=== PATIENT | female | born 1965 | race Caucasian/White ===

== ENCOUNTER 2020-09-28 06:50 | Inpatient (IN) | payer BC ==
--- NOTE | 2020-09-28 07:25 | ED ---
General Adult HPI - General Chief complaint: Weakness Stated complaint: Weakness Time Seen by Provider: 09/28/20 07:09 Source: patient, family, RN notes reviewed Mode of arrival: wheelchair Limitations: no limitations - History of Present Illness Initial comments: Patient is a pleasant 55-year-old female presenting to the emergency Department with complaints of feeling off balance and slurred speech and left-sided weakness. Last known well was before 9 PM last night. Patient woke up around 1 AM and noticed symptoms. Symptoms continue. Patient states she does feel off balance. Patient states left-sided weakness is mild however is present. Pat ient states she is finding words fine just a mild slurred at points. - Related Data Home Medications Medication Instructions Recorded Confirmed No Known Home Medications 09/28/20 09/28/20 Allergies Allergy/AdvReac Type Severity Reaction Status Date / Time No Known Allergies Allergy Verified 09/28/20 08:37 Review of Systems ROS Statement: Those systems with pertinent positive or pertinent negative responses have been documented in the HPI. ROS Other: All systems not noted in ROS Statement are negative. Constitutional: Denies: fever Eyes: Denies: eye pain, vision change ENT: Denies: ear pain Respiratory: Denies: cough Cardiovascular: Denies: chest pain Endocrine: Denies: fatigue Gastrointestinal: Denies: abdominal pain Genitourinary: Denies: dysuria Musculoskeletal: Denies: back pain Skin: Denies: rash Neurological: Reports: weakness, abnormal gait. Denies: headache, paresthesias Past Medical History Past Medical History: No Reported History History of Any Multi-Drug Resistant Organisms: None Reported Past Surgical History: No Surgical Hx Reported Past Psychological History: No Psychological Hx Reported Smoking Status: Never smoker Past Alcohol Use History: None Reported Past Drug Use History: None Reported General Exam Limitations: no limitations General appearance: alert, in no apparent distress Head exam: Present: atraumatic Eye exam: Present: normal appearance, PERRL, EOMI. Absent: nystagmus ENT exam: Present: normal oropharynx Neck exam: Present: normal inspection Respiratory exam: Present: normal lung sounds bilaterally Cardiovascular Exam: Present: regular rate, normal rhythm, normal heart sounds GI/Abdominal exam: Present: soft. Absent: tenderness Extremities exam: Present: normal inspection Neurological exam: Present: alert, oriented X3, CN II-XII intact (Except for a questionable minimal drooping left face). Absent: motor sensory deficit Expanded Neurological exam: Present: protecting the airway, other (Some mild slurred speech is noticed) Cranial nerves: EOM's Intact: Normal Sensory exam: Upper Extremity Light Touch: Normal, Lower Extremity Light Touch: Normal Motor strength exam: RUE: 5, LUE: 4, RLE: 5, LLE: 4 Eye Response: (4) open spontaneously Motor Response: (6) obeys commands Verbal Response: (5) oriented Psychiatric exam: Present: normal affect, normal mood Skin exam: Present: normal color Course Vital Signs 09/28/20 09/28/20 06:52 07:18 Temperature 97.9 F Pulse Rate 71 64 Respiratory 20 20 Rate Blood Pressure 154/77 152/83 O2 Sat by Pulse 100 99 Oximetry - Reevaluation(s) Reevaluation #1: 09/28/20 07:35 Patient is not a TPA candidate secondary to onset greater than 4.5 hours. EKG Findings - EKG Comments: EKG Findings:: Normal sinus rhythm with a rate of 69. MD 144. QRS 98. QT 440. QTc 471. Normal axis. Normal QRS. No acute ST change. Medical Decision Making - Medical Decision Making Patient reevaluated and unchanged. Patient and family updated on results and pl an. [facility] has been paged for admission for hospital call. - Lab Data Result diagrams: 09/28/20 07:40 09/28/20 07:40 Lab Results 09/28/20 09/28/20 09/28/20 Range/Units 07:40 07:40 07:40 WBC 7.3 (3.8-10.6) k/uL RBC 4.36 (3.80-5.40) m/uL Hgb 14.0 (11.4-16.0) gm/dL Hct 41.6 (34.0-46.0) % MCV 95.3 (80.0-100.0) fL MCH 32.1 (25.0-35.0) pg MCHC 33.7 (31.0-37.0) g/dL RDW 12.9 (11.5-15.5) % Plt Count 205 (150-450) k/uL MPV 8.4 Neutrophils % 77 % Lymphocytes % 14 % Monocytes % 6 % Eosinophils % 1 % Basophils % 0 % Neutrophils # 5.7 (1.3-7.7) k/uL Lymphocytes # 1.1 (1.0-4.8) k/uL Monocytes # 0.5 (0-1.0) k/uL Eosinophils # 0.1 (0-0.7) k/uL Basophils # 0.0 (0-0.2) k/uL PT 11.1 (9.0-12.0) sec INR 1.0 (<1.2) APTT 22.1 (22.0-30.0) sec Sodium 140 (137-145) mmol/L Potassium 5.9 H (3.5-5.1) mmol/L Chloride 109 H (98-107) mmol/L Carbon Dioxide 22 (22-30) mmol/L Anion Gap 9 mmol/L BUN 20 H (7-17) mg/dL Creatinine 0.69 (0.52-1.04) mg/dL Est GFR (CKD-EPI)AfAm >90 (>60 ml/min/1.73 sqM) Est GFR (CKD-EPI)NonAf >90 (>60 ml/min/1.73 sqM) Glucose 120 H (74-99) mg/dL POC Glucose (mg/dL) (75-99) mg/dL POC Glu Container Finishing Inspector ID Calcium 9.4 (8.4-10.2) mg/dL Total Bilirubin 0.9 (0.2-1.3) mg/dL AST 49 H (14-36) U/L ALT 32 (4-34) U/L Alkaline Phosphatase 76 (38-126) U/L Troponin I (0.000-0.034) ng/mL Total Protein 7.6 (6.3-8.2) g/dL Albumin 4.3 (3.5-5.0) g/dL 09/28/20 09/28/20 Range/Units 07:40 07:42 WBC (3.8-10.6) k/uL RBC (3.80-5.40) m/uL Hgb (11.4-16.0) gm/dL Hct (34.0-46.0) % MCV (80.0-100.0) fL MCH (25.0-35.0) pg MCHC (31.0-37.0) g/dL RDW (11.5-15.5) % Plt Count (150-450) k/uL MPV Neutrophils % % Lymphocytes % % Monocytes % % Eosinophils % % Basophils % % Neutrophils # (1.3-7.7) k/uL Lymphocytes # (1.0-4.8) k/uL Monocytes # (0-1.0) k/uL Eosinophils # (0-0.7) k/uL Basophils # (0-0.2) k/uL PT (9.0-12.0) sec INR (<1.2) APTT (22.0-30.0) sec Sodium (137-145) mmol/L Potassium (3.5-5.1) mmol/L Chloride (98-107) mmol/L Carbon Dioxide (22-30) mmol/L Anion Gap mmol/L BUN (7-17) mg/dL Creatinine (0.52-1.04) mg/dL Est GFR (CKD-EPI)AfAm (>60 ml/min/1.73 sqM) Est GFR (CKD-EPI)NonAf (>60 ml/min/1.73 sqM) Glucose (74-99) mg/dL POC Glucose (mg/dL) 123 H (75-99) mg/dL POC Glu Container Finishing Inspector ID Asael Claros Calcium (8.4-10.2) mg/dL Total Bilirubin (0.2-1.3) mg/dL AST (14-36) U/L ALT (4-34) U/L Alkaline Phosphatase (38-126) U/L Troponin I <0.012 (0.000-0.034) ng/mL Total Protein (6.3-8.2) g/dL Albumin (3.5-5.0) g/dL - Radiology Data Radiology results: report reviewed (Computed tomography scan of the brain reveals no acute process), image reviewed (Chest x-ray shows no acute process) Disposition Clinical Impression: CVA (cerebral vascular accident) Disposition: ADMITTED IP TO THIS HOSP Is patient prescribed a controlled substance at d/c from ED?: No Referrals: Kaylan Stevens DO [Primary Care Provider] - 1-2 days Decision Time: 08:39
[2020-09-28 07:43] LABS: Glucose,Whole Blood 123 mg/dL (75-99)
[2020-09-28 07:54] LABS: Basophils % (A) 0 %; Eosinophils # (A) 0.1 k/uL (0-0.7); Eosinophils % (A) 1 %; HCT 41.6 % (34.0-46.0); Lymphocytes # (A) 1.1 k/uL (1.0-4.8); Lymphocytes % (A) 14 %; MCH 32.1 pg (25.0-35.0); MCHC 33.7 g/dL (31.0-37.0); MCV 95.3 fL (80.0-100.0); Mean Platelet Volume 8.4; Monocytes # (A) 0.5 k/uL (0-1.0); Monocytes % (A) 6 %; Neutrophils # (A) 5.7 k/uL (1.3-7.7); Neutrophils % (A) 77 %; Platelet Count 205 k/uL (150-450); RBC 4.36 m/uL (3.80-5.40); RDW 12.9 % (11.5-15.5); WBC 7.3 k/uL (3.8-10.6)
--- NOTE | 2020-09-28 08:04 | CT ---
EXAMINATION TYPE: CT brain wo con for TPA DATE OF EXAM: 09/28/2020 COMPARISON: None HISTORY: Neuro deficits, left sided weakness CT DLP: 1079.8 mGycm Automated exposure control for dose reduction was used. FINDINGS: There is no acute intracranial hemorrhage, mass effect, or midline shift identified. The ventricles and sulci are within normal limits in size. The globes are intact and the visualized sinuses are jorge ar. Low-lying cerebellar tonsils without evidence of discrete urinary malformation. IMPRESSION: No acute intracranial hemorrhage, mass effect, or midline shift is seen.
[2020-09-28 08:08] LABS: Partial Thromboplastin Time 22.1 sec (22.0-30.0); Prothrombin Time 11.1 sec (9.0-12.0)
--- NOTE | 2020-09-28 08:16 | XR ---
EXAMINATION TYPE: XR chest 2V DATE OF EXAM: 09/28/2020 COMPARISON: NONE TECHNIQUE: PA and lateral views submitted. HISTORY: Altered mental status FINDINGS: The lungs are clear and there is no pneumothorax, pleural effusion, or focal pneumonia. Heart size normal. No overt failure. Arthropathy of the shoulders. IMPRESSION: 1. No acute process.
[2020-09-28 08:17] LABS: ALT 32 U/L (4-34); African American GFR (CKD) >90 (>60 ml/min/1.73 sqM); Albumin 4.3 g/dL (3.5-5.0); Anion Gap 9 mmol/L; Blood Urea Nitrogen 20 mg/dL (7-17); Calcium 9.4 mg/dL (8.4-10.2); Carbon Dioxide 22 mmol/L (22-30); Chloride 109 mmol/L (98-107); Glucose 120 mg/dL (74-99); Non-African American GFR(CKD) >90 (>60 ml/min/1.73 sqM); Sodium 140 mmol/L (137-145); Total Bilirubin 0.9 mg/dL (0.2-1.3); Total Protein 7.6 g/dL (6.3-8.2)
[2020-09-28 08:21] LABS: AST 49 U/L (14-36); Alkaline Phosphatase 76 U/L (38-126); Potassium 5.9 mmol/L (3.5-5.1)
--- NOTE | 2020-09-28 08:29 | CT ---
EXAMINATION TYPE: CT angio head neck DATE OF EXAM: 09/28/2020 COMPARISON: None HISTORY: Left sided weakness, neuro deficitis CONTRAST: Performed with IV Contrast, patient injected with 65 mL of Isovue 370. Combination Contrast CTA cervical carotids and [place] of [place]ai CTA cervical carotids with 3-D recons truction Contrast CTA of the cervical carotids was performed 3-D reconstruction imaging obtained at a separate workstation. Right carotid system: Mild plaque is seen of the right common carotid artery. There is mild plaque a lso noted at the carotid bulb and proximal ICA. No significant diameter reduction. ECA is patent. Right vertebral artery appears unremarkable. Left carotid system: Mild plaque is seen of the left common carotid artery. There is mild plaque als o noted at the carotid bulb and proximal ICA. No significant diameter reduction. ECA is patent. Lef t vertebral artery appears unremarkable. IMPRESSION: 1. No significant diameter reduction to account for the patient's symptoms. CTA [place] with 3-D reconstruction Contrast CTA of the [place] of [place] was performed 3-D reconstruction imaging obtained at a separate workstation. Vertebrobasilar system as well as intracranial portions of the internal carotid arteries and their [place] tributaries are patent. I do not see evidence for sizable aneurysm or vascular malformation. Pl ease note MRI provides greater sensitivity and specificity. Visualized brain appears grossly unremar kable. IMPRESSION: 1. No significant abnormality.
[2020-09-28] MEDS ORDERED: ASPIRIN 325 MG TAB PO STA (08:39)
[2020-09-28] MEDS: SODIUM CHLORIDE 0.9% 1,000 ML IV SCH ×2 (08:54→19:57)
[2020-09-28] MEDS ORDERED: SODIUM POLYSTYRENE SULFONATE 15 GM/60 ML BOTTLE PO STA (09:38)
[2020-09-28] MEDS ORDERED: ATORVASTATIN 40 MG TAB PO SCH ×2 (09:45→21:00)
--- NOTE | 2020-09-28 09:45 | P.HPIM ---
History of Present Illness H&P Date: 09/28/20 Chief Complaint: Left-sided weakness This is a 55-year-old female with no significant past medical history that presented to the emergency room with left-sided weakness. Patient said that she was in her normal state of health last night and she went to bed around 9 PM and woke up at 1 to the dog out. At that time she noticed that her left side is weak mostly her left arm and left leg. She described herself as if she was drunk. She denies any numbness or tingling anywhere. No headache or back pain. Patient said that she managed to go back to bed and slept and got up this morning to get ready to go to work but noticed that her symptoms are still there so she decided to come to the emergency room for further evaluation. Patient was outside of the window for TPA. Computed tomography scan of the head CT angiography of the head and neck with no acute findings. Patient was seen and evaluated by me in the ER. She told me that her symptoms improved but still h ave some residual weakness mostly in the left lower extremity. She was able to get up and go to the bathroom by herself with minimal difficulty. She'll be admitted to the hospital for further management. Review of Systems Review of system: 14 points review of systems were obtained and were negative except to what were mentioned in the HPI. Past Medical History Past Medical History: No Reported History History of Any Multi-Drug Resistant Organisms: None Reported Past Surgical History: No Surgical Hx Reported Past Psychological History: No Psychological Hx Reported Smoking Status: Never smoker Past Alcohol Use History: None Reported Past Drug Use History: None Reported Medications and Allergies Home Medications Medication Instructions Recorded Confirmed Type No Known Home Medications 09/28/20 09/28/20 History Allergies Allergy/AdvReac Type Severity Reaction Status Date / Time No Known Allergies Allergy Verified 09/28/20 08:37 Physical Exam Vitals: Vital Signs Temp Pulse Resp BP Pulse Ox 09/28/20 08:55 68 20 133/68 99 09/28/20 07:18 64 20 152/83 99 09/28/20 06:52 97.9 F 71 20 154/77 100 Intake and Output 09/27/20 09/28/20 09/28/20 22:59 06:59 14:59 Other: Weight 92.986 kg General: The patient is awake and alert, in no distress Eye: there is normal conjunctiva bilaterally. Neck: The neck is supple, there is no JVD. Cardiovascular: Normal S1-S2, no S3-S4, no murmurs. Respiratory: Lungs clear to auscultation bilaterally Gastrointestinal: Abdomen is soft, nontender Musculoskeletal: There is no pedal edema. Neurological:. Speech is normal. Cranial nerves intact. Muscle strength 5/5 in upper extremities and 5 /5 in right lower extremity but 3--4 out of 5 in left lower extremity Skin: Skin is warm and dry Results CBC & Chem 7: 09/28/20 07:40 09/28/20 07:40 Labs: Abnormal Lab Results - Last 24 Hours (Table) 09/28/20 09/28/20 Range/Units 07:40 07:42 Potassium 5.9 H (3.5-5.1) mmol/L Chloride 109 H (98-107) mmol/L BUN 20 H (7-17) mg/dL Glucose 120 H (74-99) mg/dL POC Glucose (mg/dL) 123 H (75-99) mg/dL AST 49 H (14-36) U/L Assessment and Plan Assessment: This is a 55-year-old female with no past medical history that presented to the emergency room with left-sided weakness. Patient was evaluated in the ER and admitted to the hospital for further management of her medical problems noted below. 1. Suspected CVA, outside of the window for TPA. Computed tomography scan of the head and CT angiogram of the head and neck with no acute findings. I would order MRI of the brain for further evaluation. Patient started on aspirin 325 mg and Lipitor 40 mg daily. Neurology consulted for further evaluation. Echocardiogram pending. I would check thyroid function tests, lipid profile, and A1c. PT/OT/speech pathology evaluation. 2. Hyperkalemia: Exact etiology unclear. Will give one-time dose of Kayexalate and repeat lab work in the morning 3. DVT prophylaxis with subcu Lovenox Today, I reviewed her medication list and lab work results. Blood pressure slightly elevated on presentation but significantly better now. We will continue to monitor closely. Patient and her at bedside updated about her current condition.
[2020-09-28] MEDS: ENOXAPARIN 40 MG/0.4 ML SYRINGE SQ SCH (10:10)
--- NOTE | 2020-09-28 11:31 | ECHOF ---
Referral Reason: MEASUREMENTS -------- HEIGHT: 167.6 cm WEIGHT: 93.0 kg BP: 133/68 RVIDd: 3.1 cm (< 3.3) IVSd: 1.2 cm (0.6 - 1.1) LVIDd: 5.5 cm (3.9 - 5.3) LVPWd: 0.9 cm (0.6 - 1.1) IVSs: 1.4 cm LVIDs: 3.1 cm LVPWs: 1.9 cm LAESV Index (A-L): 23.30 ml/m Ao Diam: 2.5 cm (2.0 - 3.7) AV Cusp: 1.8 cm (1.5 - 2.6) LA Diam: 3.4 cm (2.7 - 3.8) MV EXCURSION: 19.436 mm (> 18.000) MV EF SLOPE: 132 mm/s (70 - 150) EPSS: 0.8 cm MV E Mino: 0.98 m/s MV DecT: 286 ms MV A Mino: 0.82 m/s MV E/A Ratio: 1.20 RAP: 5.00 mmHg RVSP: 19.13 mmHg FINDINGS -------- The left ventricular size is normal. There is mild concentric left ventricular hypertrophy. Overa ll left ventricular systolic function is normal with, an EF between 55 - 60 %. The right ventricle is normal in size. The left atrial size is normal. Normal LA size by volume 22+/-6 ml/m2. The right atrial size is normal. The aortic valve is trileaflet and appears structurally normal. There is trace mitral regurgitation. Cannot exclude mitral valve prolapse. The tricuspid valve appears structurally normal. Mild tricuspid regurgitation present. Right vent ricular systolic pressure is normal at < 35 mmHg. There is no pulmonic regurgitation present. The aortic root size is normal. Normal inferior vena cava with normal inspiratory collapse consistent with estimated right atrial pre ssure of 5 mmHg. There is no pericardial effusion. CONCLUSIONS -------- 1. The left ventricular size is normal. 2. There is mild concentric left ventricular hypertrophy. 3. Overall left ventricular systolic function is normal with, an EF between 55 - 60 %. 4. There is trace mitral regurgitation. 5. Cannot exclude mitral valve prolapse. 6. Mild tricuspid regurgitation present. 7. There is no pericardial effusion. PROGRAM SUPPORT SPECIALIST: Eden Boyle RDCS
[2020-09-28] MEDS: CLOPIDOGREL 75 MG TAB PO SCH (13:50)
--- NOTE | 2020-09-28 13:52 | P.CNNES ---
History of Present Illness Consult date: 09/28/20 Requesting physician: Marcio Vidal Reason for Consult: Stroke: slurred speech and left sided weakness History of Present Illness: This is a 55-year-old woman with no significant medical history that presented to the emergency department on 09/28/2020 for slurred speech and left-sided weakness. Patient stated that the she was the and last normal state around 9 PM on 09/27/2020 and woke up at 1 AM and she noticed that she had left-sided weakness and was slurring her speech. She described herself her walk was like she was drunk. She denies off any numbness. Patient stated that the to go back to sleep and when she woke up at around 5am to 6am she noticed her symptoms has not resolved so she decided that comes emergency department. Currently she feels her symptoms are improving but is not back to baseline. She denies of any visual disturbance or headache at the onset of her symptoms. Patient denies being on antiplatelets or statin that. She denies of any prior history of TIA. She stated that her father had a stroke in his 90s. She denies of any tobacco use of alcohol use. Workup in the hospital consisted of: Patient initial blood pressure was 154/77 with a heart rate of 71. And temperature of 97.[address] of the head is reported as no acute intracranial hemorrhage, mass effect or midline shift is seen. CT angiography of the head and neck is reported as no significant diameter reduction to account for the patient's symptoms. No significant abnormality. EKG is reported as normal sinus rhythm. Possible left atrial enlargement. Borderline EKG. 2-D echo was reported as left ventricular size is normal. Mild concentric left ventricular hypertrophy. Ejection fraction of 55-60%. Cannot exclude the mitral valve prolapse at. Left atrial size is normal. An initial serum glucose is 120. The potassium was 5.9 which is elevated AST is 49 which is mildly elevated in the ALTs 32. TSH is 3.02 which is considered within the normal limits. Lipid panel: Triglyceride 72, cholesterol of 174, LDLs 105 and HDL 55. Review of Systems Review of system: The 12 point system was reviewed and apparent positive and negative per HPI. Past Medical History Past Medical History: No Reported History Additional Past Medical History / Comment(s): Slight murmur. History of Any Multi-Drug Resistant Organisms: None Reported Past Surgical History: Section Additional Past Surgical History / Comment(s): x3, colonoscopy Past Anesthesia/Blood Transfusion Reactions: No Reported Reaction Smoking Status: Former smoker - Past Family History Father Family Medical History: Coronary Artery Disease (CAD), CVA/TIA Additional Family Medical History / Comment(s): CVA and CABG. Father lived to be 90yrs old. Mother Family Medical History: Hypertension Additional Family Medical History / Comment(s): Mother is . Medications and Allergies Home Medications Medication Instructions Recorded Confirmed Type No Known Home Medications 09/28/20 09/28/20 History Allergies Allergy/AdvReac Type Severity Reaction Status Date / Time No Known Allergies Allergy Verified 09/28/20 08:37 Physical Examination - Vital Signs Vital Signs: Vital Signs Temp Pulse Resp BP Pulse Ox 09/28/20 11:00 67 18 139/87 97 09/28/20 08:55 68 20 133/68 99 09/28/20 07:18 64 20 152/83 99 09/28/20 06:52 97.9 F 71 20 154/77 100 Intake and Output 09/27/20 09/28/20 09/28/20 22:59 06:59 14:59 Other: Weight 92.986 kg 92.986 kg GENERAL: The patient is lying in bed and is not in acute distress. CHEST: The heart rate is regular rate rhythm. No murmurs to auscultation. No carotid bruit bilaterally. LUNG: Clear to auscultation bilaterally no wheezing noted throughout. Not labored breathing. ABDOMEN/GI: Bowel sounds present in all 4 quadrants. No tenderness to palpation throughout. NEUROLOGICAL: Higher mental function: The patient is awake, alert, oriented to self, place and time. Patient is following commands. No aphasia and no neglect. Cranial nerves: The pupils are round, equal and reactive to light and accommodation. Visual duran are full to confrontation throughout. Extraocular movement is intact no nystagmus is noted. Facial sensation is normal to touch throughout. The facial strength is normal throughout. Hearing is normal bilaterally to hand rub. Tongue is midline and moved [id number] without any difficulty. No dysarthria is noted. Shoulder shrug is normal bilaterally. Motor: Gait was slightly unsteady walking. Not swaying to one side or other. The strength is left arm extension/flexion is 5-. Otherwise 5 over 5 throughout. Normal tone and bulk. Cerebellum: Normal finger to nose heel to chin bilaterally. Sensation: Sensation is normal to touch throughout. Reflexes (right/left): 2+ throughout. Plantars are downgoing bilaterally. Results - Laboratory Findings CBC and BMP: 09/28/20 07:40 09/28/20 07:40 Abnormal Lab Findings: Abnormal Labs 09/28/20 09/28/20 09/28/20 07:40 07:40 07:42 Potassium 5.9 H Chloride 109 H BUN 20 H Glucose 120 H POC Glucose (mg/dL) 123 H AST 49 H LDL Cholesterol, Calc 105 H Assessment and Plan Assessment: Acute left-sided weakness and dysarthria (with improving to left upper extremity weakness): Due to acute ischemic stroke. Did not get IV tpa since outside window (>4.5 hours). Plan: CT of the head is reported as no acute intracranial hemorrhage, mass effect or midline shift is seen. CT angiography of the head and neck is reported as no significant diameter reduction to account for the patient's symptoms. No significant abnormality. 2-D echo was reported as left ventricular size is normal. Mild concentric left ventricular hypertrophy. Ejection fraction of 55-60%. Cannot exclude the mitral valve prolapse at. Left atrial size is normal. TSH is 3.02 which is considered within the normal limits. Lipid panel: Triglyceride 72, cholesterol of 174, LDLs 105 and HDL 55. LDL goal is stroke is <70. In the ED the patient was given aspirin 325 once and was started on aspirin 325 daily. I decreased the aspirin from 325 to 81 and started the patient on Plavix 75 mg daily. Patient is to be on dual antiplatelets for 21 days and after 21 days to continue on aspirin 81 mg indefinitely and stop Plavix. She was started on Lipitor 40 mg daily by the primary team ( I changed it to qhs). MRI and HbA1c the brain are ordered by the primary team is pending PT, OT and SPR[facility] PILOT are consulted. Placed on Q4 hours neuro checks. Continue continous cardiac monitoring. Will defer the rest of medical management to the primary team. Thank you for the consult. Vinay Davalos MD Neuro-Hospitalist Time with Patient: Greater than 30
[2020-09-28 18:36] LABS: Hemoglobin A1C 5.8 % (4.0-6.0)
[2020-09-29 05:30] VITALS: RESP 18
[2020-09-29] MEDS: SODIUM CHLORIDE 0.9% 1,000 ML IV SCH (06:43)
--- NOTE | 2020-09-29 08:25 | MR ---
EXAMINATION TYPE: MR brain wo con DATE OF EXAM: 09/29/2020 COMPARISON: 1021 HISTORY: Dizziness, weakness, R/O CVA. CONTRAST: Performed utilizing 0 mL intravenous Gadavist gadolinium contrast. TECHNIQUE: Multiplanar, multiecho imaging on a 3.0 Claudine magnet is performed through the brain. Stud y is performed within 24 hours of arrival to the hospital. The craniovertebral junction is normal. The pituitary is normal. Diffusion-weighted imaging is performed. There is a hyperdensity within the right mirian measuring 1.3 x 0.6 cm. Findings compatible with acute ischemic area. This area is faintly visualized on the T2 we ighted sequences. This is hyperintense on FLAIR. There is a subcortical white matter change on the right parietal lobe. Couple of punctate additional subcortical white matter changes are within the bilateral parietal lobes. Ventricles and sulci are appropriate for the patient age. IMPRESSIONS: 1. Findings suggestive for acute ischemic change within the right mirian. 2. Minimal subcortical white matter changes likely chronic and not out of portion to patient's age.
[2020-09-29 08:45] LABS: Chloride 107 mmol/L (98-107)
[2020-09-29 08:48] LABS: African American GFR (CKD) >90 (>60 ml/min/1.73 sqM); Anion Gap 6 mmol/L; Blood Urea Nitrogen 12 mg/dL (7-17); Calcium 9.6 mg/dL (8.4-10.2); Carbon Dioxide 30 mmol/L (22-30); Glucose 110 mg/dL (74-99); Non-African American GFR(CKD) 83 (>60 ml/min/1.73 sqM); Potassium 4.2 mmol/L (3.5-5.1); Sodium 143 mmol/L (137-145)
[2020-09-29] MEDS ORDERED: ASPIRIN 81 MG PO SCH (09:00)
[2020-09-29] MEDS ORDERED: ASPIRIN 325 MG TAB PO SCH (09:00)
[2020-09-29] MEDS: CLOPIDOGREL 75 MG TAB PO SCH (09:16)
[2020-09-29] MEDS: ENOXAPARIN 40 MG/0.4 ML SYRINGE SQ SCH (09:16)
--- NOTE | 2020-09-29 09:41 | P.DS ---
Providers Date of admission: 09/28/20 08:39 Expected date of discharge: 09/29/20 Attending physician: Rosa Vicente DO Consults: 09/28/20 08:39 Consult Physician Urgent Consulting Provider: Jenise Garcia Consult Reason/Comments: cva Do you want consulting provider notified?: Yes 09/29/20 08:14 Consult Physician Urgent Consulting Provider: Rebecca Pineda Consult Reason/Comments: danae Do you want consulting provider notified?: Yes Primary care physician: Kaylan Stevens DO Hospital Course: This is a 55-year-old female with no past medical history that presented to the emergency room with left-sided weakness. Patient was evaluated in the ER and admitted to the hospital for further management of her medical problems noted below. 1. CVA, with acute ischemic changes involving the right mirian noted on MRI of the brain. was outside of the window for TPA on presentation. Patient was seen and evaluated by neurology. Started on aspirin and Plavix for 21 days then discontinue Plavix and continue aspirin indefinitely. Echocardiogram showed preserved ejection fraction with no significant valvular abnormalities and no intracardiac source of stroke. TSH and A1c normal. Patient was seen and evaluated by PT/OT/speech pathology 2. Hyperlipidemia: Started on Lipitor 40 mg daily 3. Hyperkalemia: On presentation now resolved Patient's left-sided weakness almost resolved. She'll be discharged home in a stable condition. She will follow-up with her PCP as directed. Patient Condition at Discharge: Fair Plan - Discharge Summary Discharge Rx Participant: No New Discharge Prescriptions: New Atorvastatin [Lipitor] 40 mg PO HS #30 tab Clopidogrel [Plavix] 75 mg PO DAILY #21 tab Aspirin 81 mg PO DAILY #30 chew Discharge Medication List Aspirin 81 mg PO DAILY #30 chew 09/29/20 [Rx] Atorvastatin [Lipitor] 40 mg PO HS #30 tab 09/29/20 [Rx] Clopidogrel [Plavix] 75 mg PO DAILY #21 tab 09/29/20 [Rx] Follow up Appointment(s)/Referral(s): Kaylan Stevens DO [Primary Care Provider] - 1-2 days Discharge Disposition: HOME SELF-CARE
[2020-09-29 11:14] VITALS: BP 157/77; PULSE 66; TEMP 98.2
--- NOTE | 2020-09-29 19:12 | P.PN ---
Progress Note - Text Progress Note Date: 09/28/20 MR the brain is reported as findings suggestive of for acute ischemic change within the right mirian. Minimal subcortical white matter changes likely chronic and not out of proportion to the patient's age. Acute ischemic stroke (right medial mirian) with symptoms of left-sided weakness and dysarthria (with improving to left upper extremity weakness): Did not get IV tpa since outside window (>4.5 hours). Etiology is unknown but seems small vessel disease from location (but does not have significant risk factors) I consulted cardiology for a transesophageal echocardiogram. I recommend the patient the to the be placed on a Holter monitor prior to discharge. Patient refused to get JEFFRY or further work-up and wanted to leave. She left before even me seeing her. Vinay Davalos MD Neuro-Hospitalist
== END 2020-09-29 14:28 | disposition home or self-care (01) | DRG 65 ==
LOC: SUPCPDRO 06:50 → EC 06:50 → 3NCARDOBS 08:39 → 3SCARD 09:42
PROVIDERS: ADMIT Internal Medicine; ATTEND Internal Medicine
DX: I63.9 Cerebral infarction, unspecified (principal); G81.94 Hemiplegia, unspecified affecting left nondominant side; E87.5 Hyperkalemia; R47.1 Dysarthria and anarthria; Z87.891 Personal history of nicotine dependence; Z20.822 Contact with and (suspected) exposure to COVID-19; Z82.49 Family history of ischemic heart disease and other diseases of the circulatory system; Z82.3 Family history of stroke; E78.5 Hyperlipidemia, unspecified
CPT/HCPCS: 36415; 70450; 70496; 70498; 70551; 71046; 80048; 80053; 80061; 83036; 84443; 84484; 85025; 85610; 85730; 87635; 93005; 93306; 99285